=== PATIENT | female | born 1945 | race African-American/Black ===

== ENCOUNTER 2020-05-15 16:24 | Emergency (ER) | payer MEDICARE, MEDICAID, SELFPAY ==
[2020-05-15 16:40] VITALS: BP 165/64; BP 170/90; PULSE 65; PULSE 76; RESP 16; TEMP 36.7; O2SAT 99; BMI 21.6
--- NOTE | 2020-05-15 17:14 | ED.GENADULT ---
HPI - General Adult General Chief complaint: General Medical <LOLI Aguilar - Last Filed: 05/15/20 21:34> Stated complaint: uti <LOLI Aguilar - Last Filed: 05/15/20 21:34> Time Seen by Provider: 05/15/20 16:58 <LOLI Aguilar - Last Filed: 05/15/20 21:34> History of Present Illness HPI narrative: Woman with past history of dementia who is poor historian is brought by EMS from home as daughter finds it is increasingly difficult to care for her at home and [facility] visited the home and called to have the patient evaluated in the ER for clearance to go to a senior living When I asked the patient if she has any complaints she says she feels fine nothing hurts and she does not feel ill Per EMS report the daughter was concerned that she might have a UTI as last time she had a UTI she became periodically angry and her mother has been getting angry at times over the last several days No fever no chills no vomiting and otherwise been eating and drinking and doing all normal level of activity <LOLI Aguilar - Last Filed: 05/15/20 21:34> Related Data Allergies/adverse reactions: Allergies Allergy/AdvReac Type Severity Reaction Status Date / Time No Known Allergies Allergy Verified 04/28/20 07:16 <LOLI Aguilar - Last Filed: 05/15/20 21:34> Review of Systems Review of Systems: No fever no chills no head injury no neck pain no difficulty breathing no chest pain no abdominal pain denies any recent fall <LOLI Aguilar - Last Filed: 05/15/20 21:34> [facility] Past Medical History [facility] Narrative: Per medical record patient has hypertension and diabetes, patient cannot give a clear medical history <LOLI Aguilar - Last Filed: 05/15/20 21:34> Surgical History: Surgical History No pertinent past surgical history <LOLI Aguilar - Last Filed: 05/15/20 21:34> Family History Family History: Family History (Updated 04/28/20 @ 07:17 by Helen Espinoza Comfort) Father No problems noted. Mother No problems noted. Brother No problems noted. Brother No problems noted. Brother No problems noted. Sister No problems noted. Sister No problems noted. Son No problems noted. Daughter No problems noted. <LOLI Aguilar - Last Filed: 05/15/20 21:34> Social History Social History: Social History Alcohol intake: never Smoking Status: Former smoker Smoked in Last 30 Days: No Use of substances other than those prescribed or required for medical reasons: No Advance Directives: No Advance Directives Information Provided: Yes <LOLI Aguilar - Last Filed: 05/15/20 21:34> Physical Exam Vital Signs: Vital Signs: Last Vital Signs Temp 98.0 F 05/15/20 20:09 Pulse 75 05/15/20 20:09 Resp 18 05/15/20 20:09 BP 117/95 H 05/15/20 20:09 Pulse Ox 98 05/15/20 20:09 Body Mass Index 21.6 <LOLI Aguilar - Last Filed: 05/15/20 21:34> Vital Signs: Last Vital Signs Temp 98.0 F 05/15/20 20:09 Pulse 75 05/15/20 20:09 Resp 18 05/15/20 20:09 BP 117/95 H 05/15/20 20:09 Pulse Ox 98 05/15/20 20:09 Body Mass Index 21.6 <Kimberly Morales MD - Last Filed: 05/16/20 00:55> Patient is in no distress comfortable appearing and relaxed, The head is normocephalic atraumatic The neck is supple Chest is clear to auscultation bilaterally The heart no murmurs heard Abdomen is soft nontender Extremities full range of motion x4 Skin no rash Neuro no sensory deficit, no facial asymmetry, no motor deficit <LOLI Aguilar - Last Filed: 05/15/20 21:34> Course Course Course Narrative: Patient sent by family as daughter can no longer take care of her with her dementia and mood swings, I was unable to reach the daughter by phone, pending swat evaluation and probable senior living placement Physical exam was normal and no acute blood abnormality but urine is pending prior to medical clearance Case was signed out to Dr Morales at 21:00 EMS note describing arriving on scene where caseworker protective services was there who told them that the patient's daughter was concerned she might have a UTI as she has been more agitated than normal for the past few days and caseworker protective services also told the section hand helper that the family was considering sending patient to a senior living Multiple efforts to call the daughter were unsuccessful <LOLI Aguilar - Last Filed: 05/15/20 21:34> Medical Decision Making Lab Data Lab results reviewed: Yes I reviewed the patient's lab results. <LOLI Aguilar - Last Filed: 05/15/20 21:34> Result diagrams: : 05/15/20 17:32 05/15/20 17:32 <LOLI Aguilar - Last Filed: 05/15/20 21:34> Labs: Lab Results 05/15/20 05/15/20 05/15/20 Range/Units 17:32 17:32 21:30 WBC 11.8 H (4.8-10.8) X10*3/uL RBC 4.35 (4.20-5.50) X10*6/uL Hgb 11.5 L (12.0-16.0) g/dl Hct 35.3 L (37-47) % MCV 81.1 (80-98) fL MCH 26.4 L (27.0-33.0) pg MCHC 32.6 (31.0-35.0) g/dl RDW 12.9 (11.0-16.0) % Plt Count 273 (160-400) X10*3/uL MPV 10.1 (9.4-12.3) fL Immature Gran % (Auto) 0.4 (0.0-0.4) % Neut % (Auto) 62.6 (45-73) % Lymph % (Auto) 29.9 (20-40) % [place] % (Auto) 4.6 (2-11) % Eos % (Auto) 2.1 (0-4) % Baso % (Auto) 0.4 (0-2) % Lymph # (Auto) 3.5 (1.2-4.9) X10*3/uL [place] # (Auto) 0.5 (0.1-1.2) X10*3/uL Eos # (Auto) 0.3 (0.0-0.4) X10*3/uL Baso # (Auto) 0.1 (0.0-0.2) X10*3/uL Abs Immat Gran (auto) 0.05 H (0.00-0.03) X10*3/uL Absolute Neuts (auto) 7.4 (2.0-8.3) X10*3/uL Absolute Nucleated RBC 0.000 (0.0-0.012) X10*3/uL Nucleated RBC % (auto) 0.0 (0.0-0.2) /100WBC Sodium 142 (135-145) mmol/L Potassium 3.8 (3.3-5.1) mmol/L Chloride 105 (96-108) mmol/L Carbon Dioxide 27 (22-29) mmol/L Anion Gap 14 (12-20) BUN 15 (9-16) mg/dL Creatinine 0.82 (0.5-1.4) mg/dL Estim Creat Clear Calc 54.9 Estimated GFR > 60 Random Glucose 119 H (60-115) mg/dL Calcium 9.0 (8.4-10.2) mg/dL Urine Color Urine Appearance Urine pH (5.0-8.0) Ur Specific [place] (1.005-1.025) Urine Protein (NEG-TRACE) MG/DL Urine Glucose (UA) (NEG) MG/DL Urine Ketones (NEG) MG/DL Urine Blood (NEG) Urine Nitrite (NEG) Ur Leukocyte Esterase (NEG) COVID-19 (KIT) Negative (Negative) COVID-19 Clin Com See Note 05/16/20 Range/Units 00:09 WBC (4.8-10.8) X10*3/uL RBC (4.20-5.50) X10*6/uL Hgb (12.0-16.0) g/dl Hct (37-47) % MCV (80-98) fL MCH (27.0-33.0) pg MCHC (31.0-35.0) g/dl RDW (11.0-16.0) % Plt Count (160-400) X10*3/uL MPV (9.4-12.3) fL Immature Gran % (Auto) (0.0-0.4) % Neut % (Auto) (45-73) % Lymph % (Auto) (20-40) % [place] % (Auto) (2-11) % Eos % (Auto) (0-4) % Baso % (Auto) (0-2) % Lymph # (Auto) (1.2-4.9) X10*3/uL [place] # (Auto) (0.1-1.2) X10*3/uL Eos # (Auto) (0.0-0.4) X10*3/uL Baso # (Auto) (0.0-0.2) X10*3/uL Abs Immat Gran (auto) (0.00-0.03) X10*3/uL Absolute Neuts (auto) (2.0-8.3) X10*3/uL Absolute Nucleated RBC (0.0-0.012) X10*3/uL Nucleated RBC % (auto) (0.0-0.2) /100WBC Sodium (135-145) mmol/L Potassium (3.3-5.1) mmol/L Chloride (96-108) mmol/L Carbon Dioxide (22-29) mmol/L Anion Gap (12-20) BUN (9-16) mg/dL Creatinine (0.5-1.4) mg/dL Estim Creat Clear Calc Estimated GFR Random Glucose (60-115) mg/dL Calcium (8.4-10.2) mg/dL Urine Color YELLOW Urine Appearance CLEAR Urine pH 5.5 (5.0-8.0) Ur Specific [place] 1.015 (1.005-1.025) Urine Protein NEG (NEG-TRACE) MG/DL Urine Glucose (UA) NEG (NEG) MG/DL Urine Ketones NEG (NEG) MG/DL Urine Blood NEG (NEG) Urine Nitrite NEG (NEG) Ur Leukocyte Esterase NEG (NEG) COVID-19 (KIT) (Negative) COVID-19 Clin Com <LOLI Aguilar - Last Filed: 05/15/20 21:34> Lab Results 05/15/20 05/15/20 05/15/20 Range/Units 17:32 17:32 21:30 WBC 11.8 H (4.8-10.8) X10*3/uL RBC 4.35 (4.20-5.50) X10*6/uL Hgb 11.5 L (12.0-16.0) g/dl Hct 35.3 L (37-47) % MCV 81.1 (80-98) fL MCH 26.4 L (27.0-33.0) pg MCHC 32.6 (31.0-35.0) g/dl RDW 12.9 (11.0-16.0) % Plt Count 273 (160-400) X10*3/uL MPV 10.1 (9.4-12.3) fL Immature Gran % (Auto) 0.4 (0.0-0.4) % Neut % (Auto) 62.6 (45-73) % Lymph % (Auto) 29.9 (20-40) % [place] % (Auto) 4.6 (2-11) % Eos % (Auto) 2.1 (0-4) % Baso % (Auto) 0.4 (0-2) % Lymph # (Auto) 3.5 (1.2-4.9) X10*3/uL [place] # (Auto) 0.5 (0.1-1.2) X10*3/uL Eos # (Auto) 0.3 (0.0-0.4) X10*3/uL Baso # (Auto) 0.1 (0.0-0.2) X10*3/uL Abs Immat Gran (auto) 0.05 H (0.00-0.03) X10*3/uL Absolute Neuts (auto) 7.4 (2.0-8.3) X10*3/uL Absolute Nucleated RBC 0.000 (0.0-0.012) X10*3/uL Nucleated RBC % (auto) 0.0 (0.0-0.2) /100WBC Sodium 142 (135-145) mmol/L Potassium 3.8 (3.3-5.1) mmol/L Chloride 105 (96-108) mmol/L Carbon Dioxide 27 (22-29) mmol/L Anion Gap 14 (12-20) BUN 15 (9-16) mg/dL Creatinine 0.82 (0.5-1.4) mg/dL Estim Creat Clear Calc 54.9 Estimated GFR > 60 Random Glucose 119 H (60-115) mg/dL Calcium 9.0 (8.4-10.2) mg/dL Urine Color Urine Appearance Urine pH (5.0-8.0) Ur Specific [place] (1.005-1.025) Urine Protein (NEG-TRACE) MG/DL Urine Glucose (UA) (NEG) MG/DL Urine Ketones (NEG) MG/DL Urine Blood (NEG) Urine Nitrite (NEG) Ur Leukocyte Esterase (NEG) COVID-19 (KIT) Negative (Negative) COVID-19 Clin Com See Note 05/16/20 Range/Units 00:09 WBC (4.8-10.8) X10*3/uL RBC (4.20-5.50) X10*6/uL Hgb (12.0-16.0) g/dl Hct (37-47) % MCV (80-98) fL MCH (27.0-33.0) pg MCHC (31.0-35.0) g/dl RDW (11.0-16.0) % Plt Count (160-400) X10*3/uL MPV (9.4-12.3) fL Immature Gran % (Auto) (0.0-0.4) % Neut % (Auto) (45-73) % Lymph % (Auto) (20-40) % [place] % (Auto) (2-11) % Eos % (Auto) (0-4) % Baso % (Auto) (0-2) % Lymph # (Auto) (1.2-4.9) X10*3/uL [place] # (Auto) (0.1-1.2) X10*3/uL Eos # (Auto) (0.0-0.4) X10*3/uL Baso # (Auto) (0.0-0.2) X10*3/uL Abs Immat Gran (auto) (0.00-0.03) X10*3/uL Absolute Neuts (auto) (2.0-8.3) X10*3/uL Absolute Nucleated RBC (0.0-0.012) X10*3/uL Nucleated RBC % (auto) (0.0-0.2) /100WBC Sodium (135-145) mmol/L Potassium (3.3-5.1) mmol/L Chloride (96-108) mmol/L Carbon Dioxide (22-29) mmol/L Anion Gap (12-20) BUN (9-16) mg/dL Creatinine (0.5-1.4) mg/dL Estim Creat Clear Calc Estimated GFR Random Glucose (60-115) mg/dL Calcium (8.4-10.2) mg/dL Urine Color YELLOW Urine Appearance CLEAR Urine pH 5.5 (5.0-8.0) Ur Specific [place] 1.015 (1.005-1.025) Urine Protein NEG (NEG-TRACE) MG/DL Urine Glucose (UA) NEG (NEG) MG/DL Urine Ketones NEG (NEG) MG/DL Urine Blood NEG (NEG) Urine Nitrite NEG (NEG) Ur Leukocyte Esterase NEG (NEG) COVID-19 (KIT) (Negative) COVID-19 Clin Com <Kimberly Morales MD - Last Filed: 05/16/20 00:55>
[2020-05-15 17:38] LABS: MANUAL DIFF FLAG NO
[2020-05-15 17:44] LABS: Basophils Absolute Auto 0.1 X10*3/uL (0.0-0.2); Basophils Percent Auto 0.4 % (0-2); Eosinophils Absolute Auto 0.3 X10*3/uL (0.0-0.4); Eosinophils Percent Auto 2.1 % (0-4); Hematocrit 35.3 % (37-47); Hemoglobin 11.5 g/dl (12.0-16.0); Imm Gran Abs Auto 0.05 X10*3/uL (0.00-0.03); Imm Gran Pct Auto 0.4 % (0.0-0.4); Lymphocytes Absolute Auto 3.5 X10*3/uL (1.2-4.9); Lymphocytes Percent Auto 29.9 % (20-40); Mean Corpuscular HGB Conc 32.6 g/dl (31.0-35.0); Mean Corpuscular Hemoglobin 26.4 pg (27.0-33.0); Mean Corpuscular Volume 81.1 fL (80-98); Mean Platelet Volume 10.1 fL (9.4-12.3); Monocytes Absolute Auto 0.5 X10*3/uL (0.1-1.2); Monocytes Percent Auto 4.6 % (2-11); Neutrophils Absolute Auto 7.4 X10*3/uL (2.0-8.3); Neutrophils Percent Auto 62.6 % (45-73); Platelet Count 273 X10*3/uL (160-400); Red Blood Count 4.35 X10*6/uL (4.20-5.50); Red Cell Distribution Width 12.9 % (11.0-16.0); White Blood Count 11.8 X10*3/uL (4.8-10.8)
[2020-05-15 18:10] LABS: Anion Gap 14 (12-20); Blood Urea Nitrogen 15 mg/dL (9-16); Carbon Dioxide 27 mmol/L (22-29); Chloride 105 mmol/L (96-108); Creatinine Clr Calc Pharmacy 54.9; Estimated Glomerular Filt Rate > 60; Glucose Random 119 mg/dL (60-115); Potassium 3.8 mmol/L (3.3-5.1); Sodium 142 mmol/L (135-145)
--- NOTE | 2020-05-15 18:36 | PC.NURSE ---
[facility] contacted for further information about pt background and living situation. pt daughter also not answering telephone from contact number in medical record. pt is very poor historian. [facility] rn when calling back expressed that their system is down and they are unable to provide adequate information at this time, they will call back once computer systems are available.
[2020-05-15 20:09] VITALS: BP 117/95; PULSE 75; RESP 18; TEMP 36.7; O2SAT 98
--- NOTE | 2020-05-15 21:58 | PC.NURSE ---
attempted to collect urine specimen (per ED PCT). Patient was given urine cup but did not void in cup, voided in toilet instead. No urine collected in specimen cup.
[2020-05-15 22:00] LABS: COVID-19 Test Negative (Negative)
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
[2020-05-16] VITALS (10 sets, daily range): BP systolic 123–171; BP diastolic 58–98; PULSE 72–82; RESP 16–20; TEMP 36.4–36.8; O2SAT 98–99
[2020-05-16 00:24] LABS: Glucose Urine UA NEG (NEG); Leukocyte Esterase Urine NEG (NEG); Nitrite Urine NEG (NEG); PH 5.5 (5.0-8.0); Specific Gravity - Urine 1.015 (1.005-1.025); Urine Blood NEG (NEG); Urine Ketones NEG (NEG); Urine Protein NEG (NEG-TRACE)
[2020-05-16 00:34] LABS: Appearance Urine CLEAR; Color Urine YELLOW
--- NOTE | 2020-05-16 07:50 | PC.NURSE ---
Pt up and walking around room, straightening bed. Pt is alert, oriented to self, pleasantly confused, very poor historian. Offered and ordered breakfast tray. Pt denies complaints at this time. Appears to be in no apparent distress.
--- NOTE | 2020-05-16 08:42 | MHC.CM.ED ---
Attempted to reach daughterNaomi via telephone at [phone]. No answer. Unable to leave message because voicemail is full. Continue to monitor for d/c needs.
--- NOTE | 2020-05-16 09:05 | PC.NURSE ---
Pt ate 100% of breakfast, ambulating w/ steady gait to bathroom and back. Attempted and unable to reach [facility] due to office being closed.
--- NOTE | 2020-05-16 09:35 | PC.NURSE ---
Called preferred [facility]- does not have any medications listed for pt. Unable to complete med rec at this time.
--- NOTE | 2020-05-16 10:06 | MHC.CM.ED ---
Attempted to reach daughter Naomi via telephone 2 more times. No answer.
--- NOTE | 2020-05-16 10:11 | PC.NURSE ---
Pt set up for oral care- able to independently carry out, denied need or want to change into hospital attire. Pt now w/ physcical therapy.
--- NOTE | 2020-05-16 10:39 | MHC.CM.ED ---
Attempted to call Naomi again. Went right to voicemail, but unable to leave a message because the mailbox is full. Called Naomi's sig other, Fred via telephone at [phone]. T/W explained Naomi hasn't been able to contact Naomi. Fred will go over Naomi's house to have her call T/W. Continue to monitor for d/c needs.
--- NOTE | 2020-05-16 12:12 | MHC.CM.ED ---
Attempted to call Naomi again. No answer. Unable to leave voicemail.
--- NOTE | 2020-05-16 13:02 | PC.NURSE ---
ambulatory around bed. eating full lunch. s teady on feet. very confused but pleaseant. oriented to person only. states sometimes i even have a hard time talking .
--- NOTE | 2020-05-16 13:09 | PC.NURSE ---
this rn in search of med list. [facility] states she hasn't had any scripts filled in 2 years. Daughter, brittney's mailbox if full. pt is unreliable resource for meds.
--- NOTE | 2020-05-16 15:06 | PC.NURSE ---
REMAINS PLEASANTLY CONFUSED. AMBULATORY AND WANDERING A BIT BUT EASILY REDIRECTED TO BED.
--- NOTE | 2020-05-16 15:14 | MHC.CM.ED ---
Attempted to reach richard's daughter Naomi palumbo time via telephone. Spoke with [employer] house sitter. Call to [facility] for a wellness check for Naomi was approved. T/w spoke with [facility] dispatch. [employer] performed a wellness check. Naomi returned t/w call. Naomi was yelling and argumentative with T/W. Patient came to live with Naomi 2 and a half years ago after patient was evicted from her apartment. Naomi is unable to care for patient and called [facility] to take my mom. Naomi continued to explain she can't care for her. T/W asked Naomi to find a HCP. Naomi will attempt to call patient's PCP's office on Monday. Referral is being broadcasted in [email or web address]. If HCP can't be found, guardianship will need to be pursued. Due to Naomi's physical and mental health issues, it does not appear to be in patient's best interest for Naomi to be named as her guardian. Continue to monitor for d/c needs.
--- NOTE | 2020-05-16 15:26 | MHC.CM.ED ---
Per daughter Naomi, patient hasn't been on any home medication in the past 2 years.
--- NOTE | 2020-05-16 16:57 | PC.NURSE ---
moved to hospital bed. no change in assessment.
--- NOTE | 2020-05-16 20:34 | PC.NURSE ---
This RN at bedside constantly redirecting pt to remain in her room. Pt found wandering in the halls, bothering bernardo bed patients. upholstery covers inspector aware. Sitter now at bedside due to constant wandering. Pt pleasant, denies pain, educated on why she needs to remain within her room. Continue to monitor.
[2020-05-17] VITALS (8 sets, daily range): BP systolic 113–151; BP diastolic 51–71; PULSE 62–82; RESP 16–18; TEMP 36.4–36.7; O2SAT 99–100
--- NOTE | 2020-05-17 07:28 | PC.NURSE ---
RPEORT TAKEN FROM FLORENTINO HARTMANN. PATIENT SLEEPING A THIS TIME. WILL ASSESS PATIENT WHEN SHE WAKES UP.
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
[2020-05-18 07:30] VITALS: BP 145/73; PULSE 62; RESP 16; O2SAT 99
--- NOTE | 2020-05-18 07:32 | PC.NURSE ---
Pt is alert to self, needs reminder of time and place. Speaks in full sentences, sskin is pwdi, and she is in nad.
--- NOTE | 2020-05-18 11:12 | PC.NURSE ---
Elysia, from [facility] called to follow up regarding referral placed to them on Monday. She was updated on pt's clinical status. She was then connected to Claudio, from case management.
[2020-05-18 14:16] VITALS: BP 147/69; PULSE 62; RESP 16; O2SAT 97
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
[2020-05-18 17:38] VITALS: BP 148/69; PULSE 75; RESP 20; TEMP 36.6; O2SAT 97
--- NOTE | 2020-05-18 18:01 | PC.NURSE ---
PT HAS EATEN 100% OF ALL THREE MEALS TODAY.
[2020-05-18 21:27] VITALS: BP 156/66; PULSE 79; RESP 20; TEMP 36.7; O2SAT 97
[2020-05-19] VITALS (7 sets, daily range): BP systolic 126–161; BP diastolic 56–69; PULSE 69–88; RESP 14–18; TEMP 36.3–36.9; O2SAT 97–99
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
--- NOTE | 2020-05-19 07:54 | PC.NURSE ---
pt ate 100% of breakfast. pt is a/o x 1, pleasant.
--- NOTE | 2020-05-19 08:10 | PC.NURSE ---
pt amb (i) gait steady to bathroom with sitter, pt changed into hosp garment. per request pt remove her hat off her head. pt's hair and scalp is checked by this rn, pt's hair is matted and increase dandruff noted. aware.
--- NOTE | 2020-05-19 11:07 | MHC.CM.ED ---
Patient remains in ER. SNF choices: [facility] 2[facility]. Clinical updates sent via [employer]. Continue to monitor for d/c needs.
--- NOTE | 2020-05-19 13:00 | PC.NURSE ---
pt at 100% of lunch
--- NOTE | 2020-05-19 13:10 | MHC.CM.ED ---
[facility] is willing to accept patient with a negative Covid and if they are able to speak to the daughter. Covid is ordered and pending. Attempted to speak to Naomi via telephone at [phone]. Left voicemail explaing placement has been found and she needs to call T/W back before we are able to proceed. Continue to monitor for d/c needs.
[2020-05-19 13:51] LABS: COVID-19 Test Negative (Negative)
--- NOTE | 2020-05-19 14:34 | PC.NURSE ---
pt resting calm/co-op, pleasant. pt's is on [facility] portable phone with her daughter.
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
--- NOTE | 2020-05-19 16:30 | PC.NURSE ---
x1 attempt to give report to [facility]- unable to reach employee. Will continue attempt report.
--- NOTE | 2020-05-19 16:35 | PC.NURSE ---
Unable to reach rn at [facility]. will try again
--- NOTE | 2020-05-19 17:38 | PC.NURSE ---
x3 attempts to give report to [facility]- unable to reach RN. Report given to EMS.
== END 2020-05-19 17:39 | disposition skilled nursing facility (03) ==
PROVIDERS: Nurse Practitioner Family; Physician Assistant Medical; Emergency Provider Emergency Medicine
DX: F03.90 Unspecified dementia, unspecified severity, without behavioral disturbance, psychotic disturbance, mood disturbance, and anxiety (principal); Z20.822 Contact with and (suspected) exposure to COVID-19; I10 Essential (primary) hypertension; E11.9 Type 2 diabetes mellitus without complications
CPT/HCPCS: 36415; 51701; 80048; 81003; 85025; 87635; 97162; 99284; 99285